=== PATIENT | male | born 2000 | race Caucasian/White ===

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

== ENCOUNTER 2021-04-24 04:15 | Emergency (ER) | payer OTHER ==
[2021-04-24 04:28] VITALS: TEMP 98.3; BMI 174.8
[2021-04-24] MEDS ORDERED: ONDANSETRON 4 MG/2 ML VIAL IVPUSH ONE (04:47)
[2021-04-24] MEDS ORDERED: SODIUM CHLORIDE 0.9% 500 ML INFUS.BAG IV ONE (04:47)
[2021-04-24] MEDS ORDERED: ONDANSETRON 4 MG/2 ML VIAL ONE (04:50)
[2021-04-24 05:25] LABS: CALCIUM 8.4 mg/dL (8.5-10.1)
[2021-04-24 05:26] LABS: ALBUMIN 3.8 g/dl (3.4-5.0); BLOOD UREA NITROGEN 8.8 mg/dL (7-18)
[2021-04-24 05:30] LABS: CREATININE 1.2 mg/dL (0.55-1.3)
[2021-04-24 05:31] LABS: TOT PROT 7.6 g/dl (6.4-8.2)
[2021-04-24 06:26] LABS: BASO % 0.3 % (0-2.0); LYMPH % 15.8 % (8-40); MCH 30.3 pg (25.7-33.7); MCHC 34.2 g/dl (32.0-35.9); MEAN CELL VOLUME 88.8 fl (80-96); MEAN PLT VOLUME 7.1 fl (7.5-11.1); MONO % 8.9 % (3.8-10.2); PLATELET COUNT 250 10^3/uL (134-434); RBC 4.95 M/mm3 (4.00-5.60); RDW 13.3 % (11.9-15.9); WHITE BLOOD COUNT 9.2 K/mm3 (4.0-10.0)
[2021-04-24 07:04] VITALS: BP 108/56; PULSE 89
== END 2021-04-24 07:04 | disposition home or self-care (01) ==
LOC: JER 04:15
PROC: 3E033NZ Introduction of Analgesics, Hypnotics, Sedatives into Peripheral Vein, Percutaneous Approach (ICD-10-PCS; principal; 2021-04-24)
DX: R11.10 Vomiting, unspecified (principal)
CPT/HCPCS: 36415; 80053; 85025; 99284-25

== ENCOUNTER 2022-12-08 15:10 | Emergency (ER) | payer OTHER ==
[2022-12-08 15:22] VITALS: BP 114/66; PULSE 102; RESP 18; TEMP 98.2; BMI 22.8
[2022-12-08] MEDS ORDERED: IBUPROFEN 600 MG TABLET (FP) PO ONE ×2 (16:22→16:41)
== END 2022-12-08 17:00 | disposition home or self-care (01) ==
LOC: JERFT 15:10
DX: K62.89 Other specified diseases of anus and rectum (principal); K59.00 Constipation, unspecified; K62.5 Hemorrhage of anus and rectum; K64.9 Unspecified hemorrhoids
CPT/HCPCS: 82272; 99283-25